=== PATIENT | female | born 1990 | race Two or more races ===

== ENCOUNTER 2024-09-25 01:35 | Emergency (ER) | payer MEDICAID, OTHER ==
[~2024-09-25] VITALS: Ht 180.3 cm; Wt 129.6 kg
--- NOTE | 2024-09-25 01:56 | ED.PDOC ---
GI ASSESSMENT HPI Comments This patient is a severely morbidly obese 34 year-old female who presents to the ED with a chief complaint of suprapubic abdominal pain with associated dizziness, N/V/D, chills, fever vaginal bleeding as of today. Patient reports today is possibly her LMP, but denies these symptoms in typical correspondence to menstrual period. Patient reports there is a possibility of with the LMP unknown prior to today. Patient has no further complaints at this time and otherwise denies further associated symptoms of migraine, general weakness, aches, hematuria, or dysuria. Vital signs were stable on arrival. Patient had significant pain and was riding at time of evaluation. Chief Complaint: Abdominal Pain Time Seen by MD: 01:42 Reviewed Notes: Nurses Notes, Medications, Allergies Allergies: Coded Allergies: Ibuprofen (Verified Allergy, Unknown, 09/25/24) Nitrofurantoin (Verified Allergy, Unknown, 09/25/24) Information Source: Patient Mode of Arrival: Wheelchair Timing: Hours Duration: Since onset Prehospital treatment: None Quality: Aching, Cramping Severity: Severe Recent: None Recent Hx of: None Pain Location: Diffuse, Periumbilical, Suprapubic Associated sign and symptoms: Nausea, Vomiting, Diarrhea, Abdominal Pain Past Medical History PAST MEDICAL HISTORY: Denies Surgical History: Denies all surgeries FORGING [employer]ER History: No 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 Family History Family History: Reviewed,noncontributory to illness, No family hx of Cancer, No family hx of DM, No family hx of Heart harman, No family hx of HTN, No family hx ofKidney harman, No family hx of Liver harman, No family hx of Lung harman, No family hx of Stroke Social History Smoker: Non-Smoker Alcohol: Denies ETOH Use Drugs: Denies Drug Use Lives In: Home Constitutional: reports: chills; denies: diaphoresis, fatigue, fever, malaise, sweats, weakness, others EENTM: denies: blurred vision, double vision, ear bleeding, ear discharge, ear drainage, ear pain, ear ringing, eye pain, eye redness, hearing loss, mouth pain, mouth swelling, nasal discharge, nose bleeding, nose congestion, nose pain, photophobia, tearing, throat pain, throat swelling, voice changes, others Respiratory: denies: cough, hemoptysis, orthopnea, SOB at rest, shortness of breath, SOB with excertion, stridor, wheezing, others Cardiovascular: denies: chest pain, dizzy spells, diaphoresis, Dyspnea on ex ertion, edema, irregular heart beat, left arm pain, lightheadedness, palpitations, PND, syncope, others Gastrointestinal: reports: abdominal pain, diarrhea, nausea, vomiting; denies: abdomen distended, blood streaked bowels, constipated, dysphagia, difficulty swallowing, hematemesis, melena, poor appetite, poor fluid intake, rectal bleeding, rectal pain, others Genitourinary: denies: abnormal vagina bleeding, burning, dyspareunia, dysuria, flank pain, frequency, hematuria, incontinence, pain, , vagina discharge, urgency, others Neurological: denies: dizziness, fainting, headache, left sided numbness, left sided weakness, numbness, paresthesia, pre-existing deficit, right sided numbness, right sided weakness, seizure, speech problems, tingling, tremors, weakness, others Musculoskeletal: denies: back pain, gout, joint pain, joint swelling, muscle pain, muscle stiffness, neck pain, others Integumetry: denies: bruises, change in color, change in hair/nails, dryness, laceration, lesions, lumps, rash, wounds, others Allergic/Immunocompromised: denies: Difficulty Healing, Frequent Infections, Hives, Itching, others Hematologic/Lymphatic: denies: anemia, blood clots, easy bleeding, easy bruising, swollen glands, others Endocrine: denies: excessive hunger, excessive sweating, excessive thirst, excessive urination, flushing, intolerance to cold, intolerance to heat, unexplained weight gain, unexplained weight loss, others Psychiatric: denies: anxiety, bipolar disorder, depression, hopeless, panic disorder, schizophrenia, sleepless, suicidal, others All Other Systems: Reviewed and Negative Physical Exam General Appearance: Moderate Distress (Due to abdominal pain concerns.), Obese HEENT: Normal ENT Inspection, Pharynx Normal, TMs Normal Neck: Full Range of Motion, Non-Tender, Normal, Normal Inspection Respiratory: Chest Non-Tender, Lungs Clear, No Accessory Muscle Use, Normal Breath Sounds, Respiratory Distress (mild ) Cardiovascular: No Edema, No JVD, No Murmur, No Gallop, Normal Peripheral Pulses, Regular Rate/Rhythm Breast Exam: Deferred Gastrointestinal: No Pulsatile Mass, Normal Bowel Sounds, Soft, Tenderness (That has palpation throughout the suprapubic and lower bilateral pelvic region. Difficult to assess due to body habitus.) Genitalia: Deferred Pelvic: Deferred Rectal: Deferred Extremities: No calf tenderness, Normal capillary refill, Normal inspection, Normal range of motion, Non-tender, No pedal edema Musculoskeletal : Apperance: Normal Neurologic: Alert, No Motor Deficits, Normal Affect, Normal Mood, No Sensory Deficits Cerebellar Function: Normal Reflexes: Normal Skin: Dry, Normal Color, Warm Lymphatic: No Adenopathy Was a procedure done? Was a procedure done?: No GI differential Dx Differential Diagnosis: Incomplete , Inevitable , Missed Abo rtion, Threatened , Abruptio placentae, Constipation, Gastroenteritis, Dehydration, , Bacterial, Parasitic, Viral X-Ray, Labs, Meds, VS Vital Signs Date Time Temp Pulse Resp B/P (MAP) Pulse Ox O2 Delivery O2 Flow Rate FiO2 09/25/24 02:41 65 20 115/62 09/25/24 02:25 98.0 54 20 122/63 (82) 100 98.0 09/25/24 02:12 54 20 122/63 09/25/24 01:39 97.9 76 20 119/69 (86) 99 97.9 Lab Test 09/25/24 02:30 09/25/24 01:50 Range/Units Urine Color Colorless Yellow Urine Clarity Ex.turbid Clear Urine pH 6.0 5.0-9.0 Urine Specific [place] 1.025 1.001-1.035 Urine Protein 1+ H Negative Urine Ketones 2+ H Negative Urine Blood 3+ H Negative /uL Urine Nitrite Negative Negative Urine Bilirubin Negative Negative Urine Urobilinogen Normal Negative mg/dL Urine Leukocyte Esterase Trace Negative /uL Urine RBC 5082 0 - 4 /hpf Urine Microscopic WBC 2 0-5 /HPF Urine Squamous Epithelial Cells None seen <5 /hpf Urine Bacteria None seen None Seen /hpf Urine Glucose Normal Normal mg/dL White Blood Count 12.1 H 4.4-10.8 10^3/uL Red Blood Count 4.62 4.0-5.20 10^6/uL Hemoglobin 12.9 12.2-16.2 g/dL Hematocrit 38.1 36.0-46.0 % Mean Corpuscular Volume 82.5 80.0-100.0 fL Mean Corpuscular Hemoglobin 27.9 L 28.0-32.0 pg Mean Corpuscular Hemoglobin Concent 33.9 32.0-36.0 g/dL Red Cell Distribution Width 15.4 H 11.8-14.3 % Platelet Count 335 140-450 10^3/uL Mean Platelet Volume 8.6 6.9-10.8 fL Neutrophils (%) (Auto) 85.1 H 37.0-80.0 % Lymphocytes (%) (Auto) 12.3 10.0-50.0 % Monocytes (%) (Auto) 2.5 0.0-12.0 % Eosinophils (%) (Auto) 0.0 0.0-7.0 % Basophils (%) (Auto) 0.1 0.0-2.0 % Neutrophils # (Auto) 10.3 H 1.6-8.6 10 ^3/uL Lymphocytes # (Auto) 1.5 0.4-5.4 10 ^3/uL Monocytes # (Auto) 0.3 0-1.3 10 ^3/uL Eosinophils # (Auto) 0 0-0.8 10 ^3/uL Basophils # (Auto) 0 0-0.2 10 ^3/uL Nucleated Red Blood Cells 0.0 % Sodium Level 137 136-145 mmol/L Potassium Level 3.7 3.5-5.1 mmol/L Chloride Level 104 98-107 mmol/L Carbon Dioxide Level 20 20-31 mmol/L Anion Gap 13 5-15 Blood Urea Nitrogen 6 L 9-23 mg/dL Creatinine 0.67 0.550-1.02 mg/dL Glomerular Filtration Rate Calc 119 >90 mL/min BUN/Creatinine Ratio 9.0 L 10.0-20.0 Serum Glucose 148 H 74-106 mg/dL Calcium Level 9.3 8.7-10.4 mg/dL Beta HCG, Quantitative 30903.1 H 1.5-4.2 mIU/mL Current Medications Medications (Trade) Dose Ordered Sig/Nia Route Start Time Stop Time Status Last Admin Hydromorphone HCl (Dilaudid Injection) 0.5 mg ONCE ONCE IM 09/25/24 01:45 09/25/24 01:46 DC 09/25/24 02:12 Ondansetron HCl (Zofran) 4 mg ONCE ONCE IM 09/25/24 01:45 09/25/24 01:46 DC 09/25/24 02:11 [place] [address] Ph: [phone] DIAGNOSTIC IMAGING Diagnostic Imaging Report : [id number] Signed PATIENT: BRIGIDA SIMMONS ACCT: [id number] UNIT: [id number] : 1990 LOC: ER ROOM / BED: / AGE / SEX: 34 / F ADM STATUS: REG ER SERVICE [id number] ORDERING PHYSICIAN: NOHEMI RICH PAC PROCEDURE(s): PELUS - PELVIC REASON: Pelvic pain ORDER NUMBER(s): [id number], ACCESSION NUMBER(s): [id number] INDICATION: Pelvic pain TECHNIQUE: Multiple real-time grayscale transabdominal sonographic images along with color and duplex Doppler of the uterus and ovaries were obtained. COMPARISON: None FINDINGS: The uterus measures 10.1 x 6.8 x 6.7 cm. 1.9 x 1.8 x 1.6 cm hypoechoic focus at the uterine fundus most likely represents a fibroid. The endometrial stripe measures 0.8 cm. Right ovary not visualized. Left ovary measures 3.3 x 2.7 x 2.4 cm with normal Doppler color flow. IMPRESSION: 1. Probable uterine fibroid within the fundus. 2. Thickened endometrial echo complex. 3. Right ovary not visualized. X-Ray, Labs, Meds, VS Comment All studies performed the ED were evaluated by me personally. Serum studies were unremarkable for any systemic concerns. Urinalysis showed a significant red blood cell deposition [place] beta-[place]CG [place] [address]. Pelvic ultrasound revealed a probable uterine fibroid with a in the fundus. Thickened endometrial echo complex as well as a nonvisualized right ovary. Due to the large HCG finding, a transvaginal ultrasound has been ordered and was pending at time of this note. Patient care will be transferred to Dr. Knight for evaluation of that is study once returned. Time of 1ST Reevaluation: 03:51 Reevaluation 1ST: Improved Consultation: PCP Patient Education/Counseling: Diagnosis, Treatment Family Education/Counseling: Diagnosis, Treatment SEPSIS Sepsis Screen Recent Procedure: No On Antibiotic Therapy: No Respiratory Rate >20: No Heart Rate >90: No Temp<36 C (96.8 F) or >38.3 C: No SBP <90 or MAP <65 mmHG: No New Acute Mental Status Change: No Is the patient on CPAP, BIPAP,: No Physician Orders Pelvic (09/25/24 01:41) Ob Ultrasound Comp Less 14wks (09/25/24 03:05) Vital Signs Date Time Temp Pulse Resp B/P (MAP) Pulse Ox O2 Delivery O2 Flow Rate FiO2 09/25/24 02:41 65 20 115/62 09/25/24 02:25 98.0 54 20 122/63 (82) 100 98.0 09/25/24 02:12 54 20 122/63 09/25/24 01:39 97.9 76 20 119/69 (86) 99 97.9 Laboratory Tests Test 09/25/24 01:50 White Blood Count 12.1 10^3/uL (4.4-10.8) H Medications Medications Dose Ordered Sig/Nia Route Start Time Stop Time Status Last Admin Dose Admin Hydromorphone HCl 0.5 mg ONCE ONCE IM 09/25/24 01:45 09/25/24 01:46 DC 09/25/24 02:12 Ondansetron HCl 4 mg ONCE ONCE IM 09/25/24 01:45 09/25/24 01:46 DC 09/25/24 02:11 Departure 1 Departure Time of Disposition: 03:51 Impression: Primary Impression: Pelvic pain Disposition: 30 STILL A PATIENT Condition: Stable Discharged With: Self, Spouse Critical Care Note Critical Care Time?: No Stability Stability form required: No Heart Score Heart Score: Heart Score Response (Comments) Value History N/A 0 EKG N/A 0 Age N/A 0 Risk Factors N/A 0 Troponin N/A 0 Total 0 I personally scribed for NOHEMI RICH PAC ([email or web address]) on 09/25/24 at 01:56. Electronically submitted by Ghada Robledo (Anna Lozabai). I personally scribed for NOHEMI RICH PAC ([email or web address]) on 09/25/24 at 02:37. Electronically submitted by Ghada Robledo (Anna Lozabai). NOHEMI RICH PAC Sep 25, 2024 01:56
[2024-09-25 02:05] LABS: Hematocrit 38.1 % (36.0-46.0); Hemoglobin 12.9 g/dL (12.2-16.2); Mean Corpuscular Hemoglobin 27.9 pg (28.0-32.0); Mean Corpuscular Volume 82.5 fL (80.0-100.0); Nucleated Red Blood Cells % 0.0 %
[2024-09-25] MEDS: ONDANSETRON HCL 4 MG/2 ML VIAL IM ONE (02:11)
[2024-09-25] MEDS: HYDROmorphone HCL 2 MG/ML VL/or syr IM ONE (02:12)
[2024-09-25 02:13] LABS: Chloride 104 mmol/L (98-107); Potassium 3.7 mmol/L (3.5-5.1); Sodium 137 mmol/L (136-145)
[2024-09-25 02:14] LABS: Anion Gap 13 (5-15); Calcium 9.3 mg/dL (8.7-10.4)
[2024-09-25 02:19] LABS: BUN/Creatinine Ratio 9.0 (10.0-20.0)
--- NOTE | 2024-09-25 02:29 | DVH ---
INDICATION: Pelvic pain TECHNIQUE: Multiple real-time grayscale transabdominal sonographic images along with color and duplex Doppler of the uterus and ovaries were obtained. COMPARISON: None FINDINGS: The uterus measures 10.1 x 6.8 x 6.7 cm. 1.9 x 1.8 x 1.6 cm hypoechoic focus at the uterine fundus most likely represents a fibroid. The endometrial stripe measures 0.8 cm. Right ovary not visualized. Left ovary measures 3.3 x 2.7 x 2.4 cm with normal Doppler color flow. IMPRESSION: 1. Probable uterine fibroid within the fundus. 2. Thickened endometrial echo complex. 3. Right ovary not visualized.
[2024-09-25 02:42] LABS: Blood Urea Nitrogen 6 mg/dL (9-23); Carbon Dioxide 20 mmol/L (20-31); Glucose 148 mg/dL (74-106)
[2024-09-25 02:51] LABS: Urine Protein, UAD 1+ (Negative)
--- NOTE | 2024-09-25 04:54 | DVH ---
CLINICAL HISTORY: Vaginal bleeding and abdominal pain, beta 51, 416 COMPARISON:None TECHNIQUE: Transvaginal and transabdominal grayscale sonographic imaging of the uterus and ovaries wa s performed, assisted by color Doppler technique. Duplex Doppler ultrasound of both ovaries was also performed. FINDINGS: The uterus measures 10.0 x 7.1 x 6.3 cm. There are 2 fundal fibroids measuring up to 2.9 cm . Endometrial thickness measures 1.6 cm, heterogeneous without evidence of IUP or gestational sac. The right ovary measures 3.8 x 3.3 x 2.2 cm. Left ovary measures 2.7 x 2.4 x 3.3 cm. No focal adnexa l lesion. Trace free fluid in the cul-de-sac. IMPRESSION: 1. Heterogeneous appearance of the endometrium without evidence of IUP or gestational sac. 2. Follow-up beta HCGs and ultrasound is recommended to exclude ectopic or molar .
[2024-09-25 05:42] VITALS: TEMP 98.2; O2SAT 97
[2024-09-25] MEDS: HYDROmorphone HCL 2 MG/ML VL/or syr IV ONE (05:43)
[2024-09-25] MEDS: ONDANSETRON HCL 4 MG/2 ML VIAL IV ONE (05:43)
[2024-09-25 06:11] VITALS: BP 109/68; PULSE 64; RESP 20
== END 2024-09-25 06:14 | disposition home or self-care (01) ==
LOC: ER 01:35
DX: R10.2 Pelvic and perineal pain (principal); Z88.6 Allergy status to analgesic agent; Z88.1 Allergy status to other antibiotic agents
CPT/HCPCS: 36415; 76817; 76856; 80048; 81001; 84702; 85025; 96372; 96374; 96375; 99285; J1171; J2405